=== PATIENT | female | born 1955 | race Caucasian/White ===

== ENCOUNTER 2022-10-10 13:02 | Emergency (ER) | payer SELFPAY ==
[~2022-10-10] VITALS: Ht 157.5 cm; Wt 68.2 kg
[2022-10-10 14:52] VITALS: BP 138/67
== END 2022-10-10 15:05 | disposition home or self-care (01) ==
LOC: M ED 14:57
DX: S52.531A Colles' fracture of right radius, initial encounter for closed fracture (principal); W00.0XXA Fall on same level due to ice and snow, initial encounter; Y92.009 Unspecified place in unspecified non-institutional (private) residence as the place of occurrence of the external cause; Y93.K1 Activity, walking an animal